=== PATIENT | female | born 1935 | race Caucasian/White ===

== ENCOUNTER 2016-06-23 18:56 | Emergency (ER) | payer MEDICARE, BC ==
[2016-06-23 19:52] LABS: Hematocrit 42 % (35-47); Hemoglobin 13.8 g/dl (12.0-16.0); Mean Corpuscular HGB Conc 33 g/dl (31-36); Mean Corpuscular Hemoglobin 30 pg (27-31); Mean Corpuscular Volume 90 fL (80-97); Mean Platelet Volume 8 um3 (7.4-10.4); Red Blood Count 4.61 10^6/ul (4.0-5.4); Red Cell Distribution Width 13 % (10.5-15); White Blood Count 9.8 10^3/ul (3.5-10.8)
--- NOTE | 2016-06-23 20:02 | ED ---
Anoop Harrington Karl, scribed for Edy Carias MD on 06/23/16 at 1920 . HPI Cardiac - HPI Summary HPI Summary: Pt is a 81 y/o female that presents to the ED c/o rapid HR that started at 17: 30. Pt stated she took Cardizem at 18:00 with no relief and denied CP, SOB, and dizziness. Pt reported that 06/09/16 was her last episode of SVT. Hx: A-fib. - History of Current Complaint Chief Complaint: EDDysrhythmPalp Stated Complaint: RAPID HEART Time Seen by Provider: 06/23/16 19:15 Hx Obtained From: Patient Onset/Duration: Started Hours Ago, Atraumatic, Still Present Time of Onset: 17:30 - Rapid HR Timing: Constant, Lasting Hours Initial Severity: Mild Current Severity: Mild Pain Intensity: 0 - CP Pain Scale Used: 0-10 Numeric Aggravating Factor(s): Nothing Alleviating Factor(s): Nothing Associated Signs and Symptoms: Positive: Other: - Rapid HR. Negative: Chest Pain, Dizziness, Shortness of Breath Related History: Similar Episode/Dx as: - SVT on 06/09/16 - Risk Factors Cardiac Risk Factors: Family History - Additional Pertinent History Primary Care Physician: [id number] - Allergy/Home Medications Allergies/Adverse Reactions: Allergies Allergy/AdvReac Type Severity Reaction Status Date / Time Epinephrine Allergy Severe Tachycardia Verified 06/09/16 14:50 Erythromycin Allergy Severe rectal Verified 06/09/16 14:50 bleeding, fistula Pentazocine Allergy Severe Hallucinati Verified 06/09/16 14:50 [From Talwin Compound] ons Statins Allergy CPK Verified 06/09/16 14:50 ELEVATED MUSCLE ACHES Morphine AdvReac Unknown Nausea And Verified 06/09/16 14:50 Vomiting PMH/Surg Hx/FS Hx/Imm Hx Endocrine/Hematology History: Reports: Hx Diabetes - TYPE II- ORAL MEDICATION FOR Comment Only: Hx Thyroid Disease - THYROID NODULE Cardiovascular History: Reports: Hx Angina, Hx Hypercholesterolemia, Hx Hypertension, Other Cardiovascular Problems/Disorders - A fib at times when electrolytes are low (pt states) Denies: Hx Pacemaker/ICD Respiratory History: Denies: Other Respiratory Problems/Disorders Musculoskeletal History: Reports: Hx Arthritis - OSTEOARTHRITIS, Hx Rheumatoid Arthritis, Hx Osteoporosis Sensory History: Reports: Hx Contacts or Glasses - GLASSES, Hx Glaucoma - BILATERAL, Hx Vision Problem Denies: Hx Cataracts, Hx Eye Injury, Hx Eye Prosthesis, Hx Legally Blind, Hx Macular Degeneration, Hx Deafness, Hx Hearing Aid, Hx Hearing Problem, Other Sensory Impairments Opthamlomology History: Reports: Hx Contacts or Glasses - GLASSES, Hx Glaucoma - BILATERAL, Hx Vision Problem Denies: Hx Cataracts, Hx Eye Injury, Hx Eye Prosthesis, Hx Legally Blind, Hx Macular Degeneration, Other Sensory Impairments Neurological History: Denies: Other Neuro Impairments/Disorders Psychiatric History: Reports: Hx Anxiety - FRO NOW - Cancer History Hx Chemotherapy: No Hx Radiation Therapy: No - Surgical History Surgery Procedure, Year, and Place: Tonsillectomy, appendectomy, 2 ectopic pregnancies,. hysterectomy, left hip REPLACEMENT 09/23/14, R ANKLE FX-- NO SURGERY. LEFT FEMUR REPAIRED-2014. CATARACT BILATERAL - [facility] Hx Anesthesia Reactions: Yes - NAUSEA Infectious Disease History: No Infectious Disease History: Denies: Traveled Outside the [place] in Last 30 Days - Family History Known Family History: Positive: Cardiac Disease, Diabetes - Social History Alcohol Use: Rare Substance Use Type: Reports: None Smoking Status (MU): Never Smoked Tobacco Review of Systems Constitutional: Negative Eyes: Negative ENT: Negative Positive: Other - SVT . Negative: Chest Pain Negative: Shortness Of Breath Gastrointestinal: Negative Genitourinary: Negative Musculoskeletal: Negative Skin: Negative Neurological: Other - no dizziness Psychological: Normal All Other Systems Reviewed And Are Negative: Yes Physical Exam Triage Information Reviewed: Yes Vital Signs On Initial Exam: Initial Vitals Temp Pulse Resp BP Pulse Ox 98.1 F 160 18 134/74 99 06/23/16 18:59 06/23/16 18:59 06/23/16 18:59 06/23/16 18:59 06/23/16 18:59 Vital Signs Reviewed: Yes Appearance: Positive: Well-Appearing, No Pain Distress Skin: Positive: Warm Head/Face: Positive: Normal Head/Face Inspection ENT: Positive: Hearing grossly normal Neck: Positive: Supple Respiratory/Lung Sounds: Positive: Clear to Auscultation, Breath Sounds Present Cardiovascular: Positive: Tachycardia Abdomen Description: Positive: Nontender, Soft Bowel Sounds: Positive: Present Musculoskeletal: Positive: Strength/ROM Intact Neurological: Positive: Sensory/Motor Intact, Alert, Oriented to Person Place, Time Psychiatric: Positive: Normal Diagnostics - Vital Signs Vital Signs Temp Pulse Resp BP Pulse Ox 06/23/16 18:59 98.1 F 160 18 134/74 99 - Laboratory Lab Results: Lab Results 06/23/16 06/23/16 Range/Units 19:37 19:37 WBC 9.8 (3.5-10.8) 10^3/ul RBC 4.61 (4.0-5.4) 10^6/ul Hgb 13.8 (12.0-16.0) g/dl Hct 42 (35-47) % MCV 90 (80-97) fL MCH 30 (27-31) pg MCHC 33 (31-36) g/dl RDW 13 (10.5-15) % Plt Count 316 (150-450) 10^3/ul MPV 8 (7.4-10.4) um3 Neut % (Auto) 61.1 (38-83) % Lymph % (Auto) 26.2 (25-47) % [place] % (Auto) 9.7 H (1-9) % Eos % (Auto) 1.8 (0-6) % Baso % (Auto) 1.2 (0-2) % Absolute Neuts (auto) 6.0 (1.5-7.7) 10^3/ul Absolute Lymphs (auto) 2.6 (1.0-4.8) 10^3/ul Absolute Monos (auto) 1.0 H (0-0.8) 10^3/ul Absolute Eos (auto) 0.2 (0-0.6) 10^3/ul Absolute Basos (auto) 0.1 (0-0.2) 10^3/ul Absolute Nucleated RBC 0.01 10^3/ul Nucleated RBC % 0.1 INR (Anticoag Therapy) 1.28 H (0.89-1.11) Result Diagrams: 06/23/16 19:37 06/23/16 19:37 Lab Statement: Any lab studies that have been ordered have been reviewed, and results considered in the medical decision making process. - EKG 19:02 EKG Interpretation: SVT at 153 bpm, No STEMI 20:42 EKG Interpretation: NSR at 90 bpm, No STEMI Re-Evaluation - Re-Evaluation First Eval Change: Improved - pt remains in nsr Disposition - Diagnoses Provider Diagnoses: Palpitations Discharge - Discharge Plan Condition: Stable Disposition: HOME Patient Education Materials: Palpitations (ED) Referrals: Emerita Russell MD [Primary Care Provider] - Additional Instructions: Please follow up with your director of undergraduate admissions. Return to the emergency department for changing or worsening symptoms. The documentation as recorded by the Anoop michelle Karl accurately reflects the service I personally performed and the decisions made by me, Edy Carias MD.
[2016-06-23 20:12] LABS: Albumin 4.1 g/dL (3.2-5.2); BUN/Creatinine Ratio 30.8 (8-20); EGFR African American 65.7 (>60); EGFR Non-African American 51.1 (>60); Globulin 3.4 g/dL (2-4); Magnesium 2.2 mg/dL (1.9-2.7); Potassium 3.9 mmol/L (3.5-5.0); Total Bilirubin 0.3 mg/dL (0.2-1.0); Total Protein 7.5 g/dL (6.4-8.9)
[2016-06-23 21:50] VITALS: BP 138/64
== END 2016-06-23 21:50 | disposition home or self-care (01) ==
LOC: ED 18:56
DX: R00.2 Palpitations (principal); I47.1 Supraventricular tachycardia
CPT/HCPCS: 36415; 80053; 83735; 85025; 85610; 93005; 99283

== ENCOUNTER 2016-08-16 23:19 | Observation (INO) | payer MEDICARE, BC ==
[2016-08-16] MEDS ORDERED: Diltiazem IV* 5 MG/ML 5 ML VIAL (for loading dose/IV Push) (25 MG) IV PUSH ONE (23:39)
[2016-08-17] MEDS ORDERED: NS 0.9% 1000 ML* 1,000 ML IV ONE (00:05)
[2016-08-17 00:27] LABS: Albumin 4.2 g/dL (3.2-5.2); BUN/Creatinine Ratio 33.6 (8-20); Calcium 10.8 mg/dL (8.6-10.3); EGFR African American 59.7 (>60); EGFR Non-African American 46.4 (>60); Globulin 3.2 g/dL (2-4); Magnesium 1.8 mg/dL (1.9-2.7); Potassium 4.5 mmol/L (3.5-5.0); Total Bilirubin 0.4 mg/dL (0.2-1.0); Total Protein 7.4 g/dL (6.4-8.9)
[2016-08-17 00:34] LABS: Hematocrit 40 % (35-47); Hemoglobin 12.9 g/dl (12.0-16.0); Mean Corpuscular HGB Conc 32 g/dl (31-36); Mean Corpuscular Hemoglobin 29 pg (27-31); Mean Corpuscular Volume 90 fL (80-97); Mean Platelet Volume 8 um3 (7.4-10.4); Red Blood Count 4.46 10^6/ul (4.0-5.4); Red Cell Distribution Width 13 % (10.5-15); White Blood Count 13.1 10^3/ul (3.5-10.8)
[2016-08-17 00:35] LABS: Troponin I 0.04 ng/mL (<0.04)
[2016-08-17] MEDS: NS 0.9% 500 ML BAG* 500 ML IV ONE ×2 (01:30→02:44)
[2016-08-17] MEDS ORDERED: Ondansetron INJ* 2 MG/ML VIAL IV ONE (02:50)
[2016-08-17] MEDS ORDERED: Ondansetron INJ* 2 MG/ML VIAL ONE (02:52)
--- NOTE | 2016-08-17 03:05 | ED ---
Manuelito Harrington Adam, scribed for Edy Carias MD on 08/17/16 at 0013 . Palpitations / Dysrhythmia - HPI Summary HPI Summary: Pt is a 81 year old female presenting with palpitations. After returning home from dinner, she states that she felt her HR become rapid ("racing") at 20:00. She did not eat anything at the dinner. Pt has a Hx of A Fib and states that she has these episodes "every once in awhile." The last episode was 06/09/16. Pt denies any SOB or CP. In addition to A Fib, the pt has a PMHx of DM, HTN, HLD , RA, and osteoporosis. - History of Current Complaint Chief Complaint: EDDysrhythmPalp Time Seen by Provider: 08/16/16 23:32 Hx Obtained From: Patient Onset/Duration: Sudden Onset, Lasting Hours, Still Present Timing: Constant Severity Initially: Moderate Severity Currently: Moderate Character: Fast Aggravating: Nothing Alleviating: Nothing Associated Signs & Symptoms: Negative - Allergy/Home Medications Allergies/Adverse Reactions: Allergies Allergy/AdvReac Type Severity Reaction Status Date / Time Epinephrine Allergy Severe Tachycardia Verified 08/17/16 04:28 Erythromycin Allergy Severe rectal Verified 08/17/16 04:28 bleeding, fistula Pentazocine Allergy Severe Hallucinati Verified 08/17/16 04:28 [From Talwin Compound] ons Statins Allergy CPK Verified 08/17/16 04:28 ELEVATED MUSCLE ACHES Morphine AdvReac Unknown Nausea And Verified 08/17/16 04:28 Vomiting Home Medications: Home Medications Sertraline HCl [Zoloft] 100 mg PO QPM 08/17/16 [History Confirmed 08/17/16] PMH/Surg Hx/FS Hx/Imm Hx Endocrine/Hematology History: Reports: Hx Diabetes - TYPE II- ORAL MEDICATION FOR Comment Only: Hx Thyroid Disease - THYROID NODULE Cardiovascular History: Reports: Hx Angina, Hx Hypercholesterolemia, Hx Hypertension, Other Cardiovascular Problems/Disorders - A fib at times when electrolytes are low (pt states) Denies: Hx Pacemaker/ICD Respiratory History: Denies: Other Respiratory Problems/Disorders Musculoskeletal History: Reports: Hx Arthritis - OSTEOARTHRITIS, Hx Rheumatoid Arthritis, Hx Osteoporosis Sensory History: Reports: Hx Contacts or Glasses - GLASSES, Hx Glaucoma - BILATERAL, Hx Vision Problem Denies: Hx Cataracts, Hx Eye Injury, Hx Eye Prosthesis, Hx Legally Blind, Hx Macular Degeneration, Hx Deafness, Hx Hearing Aid, Hx Hearing Problem, Other Sensory Impairments Opthamlomology History: Reports: Hx Contacts or Glasses - GLASSES, Hx Glaucoma - BILATERAL, Hx Vision Problem Denies: Hx Cataracts, Hx Eye Injury, Hx Eye Prosthesis, Hx Legally Blind, Hx Macular Degeneration, Other Sensory Impairments Neurological History: Denies: Other Neuro Impairments/Disorders Psychiatric History: Reports: Hx Anxiety - FRO NOW - Cancer History Hx Chemotherapy: No Hx Radiation Therapy: No - Surgical History Surgery Procedure, Year, and Place: Tonsillectomy, appendectomy, 2 ectopic pregnancies,. hysterectomy, left hip REPLACEMENT 09/23/14, R ANKLE FX-- NO SURGERY. LEFT FEMUR REPAIRED-2014. CATARACT BILATERAL - [facility] Hx Anesthesia Reactions: Yes - NAUSEA Infectious Disease History: No Infectious Disease History: Denies: Traveled Outside the [place] in Last 30 Days - Family History Known Family History: Positive: Cardiac Disease, Diabetes - Social History Occupation: Retired Lives: Alone Alcohol Use: Rare Hx Substance Use: No Substance Use Type: Reports: None Hx Tobacco Use: No Smoking Status (MU): Never Smoked Tobacco Review of Systems Positive: Palpitations. Negative: Chest Pain Negative: Shortness Of Breath All Other Systems Reviewed And Are Negative: Yes Physical Exam Triage Information Reviewed: Yes Vital Signs On Initial Exam: Initial Vitals Temp Pulse Resp BP Pulse Ox 98.2 F 149 18 123/65 97 08/16/16 23:29 08/16/16 23:29 08/16/16 23:29 08/16/16 23:29 08/16/16 23:29 Vital Signs Reviewed: Yes Appearance: Positive: Well-Appearing, No Pain Distress Skin: Positive: Warm Eyes: Positive: JUNE ENT: Positive: Hearing grossly normal Neck: Positive: Supple Respiratory/Lung Sounds: Positive: Clear to Auscultation, Breath Sounds Present Cardiovascular: Positive: IRR, Tachycardia Abdomen Description: Positive: Nontender, Soft Bowel Sounds: Positive: Present Musculoskeletal: Positive: Strength/ROM Intact Neurological: Positive: Alert, Oriented to Person Place, Time Psychiatric: Positive: Affect/Mood Appropriate Diagnostics - Vital Signs Vital Signs Temp Pulse Resp BP Pulse Ox 08/16/16 23:29 98.2 F 149 18 123/65 97 - Laboratory Lab Results: Lab Results 08/16/16 08/16/16 08/16/16 Range/Units 23:55 23:55 23:55 WBC 13.1 H (3.5-10.8) 10^3/ul RBC 4.46 (4.0-5.4) 10^6/ul Hgb 12.9 (12.0-16.0) g/dl Hct 40 (35-47) % MCV 90 (80-97) fL MCH 29 (27-31) pg MCHC 32 (31-36) g/dl RDW 13 (10.5-15) % Plt Count 325 (150-450) 10^3/ul MPV 8 (7.4-10.4) um3 Neut % (Auto) 66.7 (38-83) % Lymph % (Auto) 21.6 L (25-47) % [place] % (Auto) 8.5 (1-9) % Eos % (Auto) 2.6 (0-6) % Baso % (Auto) 0.6 (0-2) % Absolute Neuts (auto) 8.7 H (1.5-7.7) 10^3/ul Absolute Lymphs (auto) 2.8 (1.0-4.8) 10^3/ul Absolute Monos (auto) 1.1 H (0-0.8) 10^3/ul Absolute Eos (auto) 0.3 (0-0.6) 10^3/ul Absolute Basos (auto) 0.1 (0-0.2) 10^3/ul Absolute Nucleated RBC 0 10^3/ul Nucleated RBC % 0 INR (Anticoag Therapy) 1.23 H (0.89-1.11) Sodium 135 (133-145) mmol/L Potassium 4.5 (3.5-5.0) mmol/L Chloride 102 (101-111) mmol/L Carbon Dioxide 24 (22-32) mmol/L Anion Gap 9 (2-11) mmol/L BUN 38 H (6-24) mg/dL Creatinine 1.13 H (0.51-0.95) mg/dL Est GFR ( Amer) 59.7 (>60) Est GFR (Non-Af Amer) 46.4 (>60) BUN/Creatinine Ratio 33.6 H (8-20) Glucose 145 H (70-100) mg/dL Lactic Acid (0.5-2.0) mmol/L Calcium 10.8 H (8.6-10.3) mg/dL Magnesium 1.8 L (1.9-2.7) mg/dL Total Bilirubin 0.40 (0.2-1.0) mg/dL AST 13 (13-39) U/L ALT 14 (7-52) U/L Alkaline Phosphatase 93 (34-104) U/L Troponin I 0.04 H* (<0.04) ng/mL Total Protein 7.4 (6.4-8.9) g/dL Albumin 4.2 (3.2-5.2) g/dL Globulin 3.2 (2-4) g/dL Albumin/Globulin Ratio 1.3 (1-3) 08/16/16 Range/Units 23:55 WBC (3.5-10.8) 10^3/ul RBC (4.0-5.4) 10^6/ul Hgb (12.0-16.0) g/dl Hct (35-47) % MCV (80-97) fL MCH (27-31) pg MCHC (31-36) g/dl RDW (10.5-15) % Plt Count (150-450) 10^3/ul MPV (7.4-10.4) um3 Neut % (Auto) (38-83) % Lymph % (Auto) (25-47) % [place] % (Auto) (1-9) % Eos % (Auto) (0-6) % Baso % (Auto) (0-2) % Absolute Neuts (auto) (1.5-7.7) 10^3/ul Absolute Lymphs (auto) (1.0-4.8) 10^3/ul Absolute Monos (auto) (0-0.8) 10^3/ul Absolute Eos (auto) (0-0.6) 10^3/ul Absolute Basos (auto) (0-0.2) 10^3/ul Absolute Nucleated RBC 10^3/ul Nucleated RBC % INR (Anticoag Therapy) (0.89-1.11) Sodium (133-145) mmol/L Potassium (3.5-5.0) mmol/L Chloride (101-111) mmol/L Carbon Dioxide (22-32) mmol/L Anion Gap (2-11) mmol/L BUN (6-24) mg/dL Creatinine (0.51-0.95) mg/dL Est GFR ( Amer) (>60) Est GFR (Non-Af Amer) (>60) BUN/Creatinine Ratio (8-20) Glucose (70-100) mg/dL Lactic Acid 2.3 H* (0.5-2.0) mmol/L Calcium (8.6-10.3) mg/dL Magnesium (1.9-2.7) mg/dL Total Bilirubin (0.2-1.0) mg/dL AST (13-39) U/L ALT (7-52) U/L Alkaline Phosphatase (34-104) U/L Troponin I (<0.04) ng/mL Total Protein (6.4-8.9) g/dL Albumin (3.2-5.2) g/dL Globulin (2-4) g/dL Albumin/Globulin Ratio (1-3) Result Diagrams: 08/16/16 23:55 08/16/16 23:55 Lab Statement: Any lab studies that have been ordered have been reviewed, and results considered in the medical decision making process. - EKG 23:26 Cardiac Rate: Tachycardia - 141 BPM EKG Rhythm: Atrial Fibrillation - With RVR - Additional Comments Diagnostic Additional Comments: Lactic Acid - 2.3 Troponin I - 0.04 (23:55), 0.05 (02:30) Re-Evaluation - Re-Evaluation First Eval Change: Improved - pt converted to nsr from afib, however has trending upward troponins, pain free, will admit Course/Dx - Course Course Of Treatment: 03:19 - Patient will be admitted. - Diagnoses Provider Diagnoses: ACS (acute coronary syndrome) - Physician Notifications Instructed by Provider To: Admit As Inpatient - Critical Care Time Critical Care Time: 30-74 min Discharge - Discharge Plan Condition: Fair Disposition: ADMITTED TO [facility] documentation as recorded by the Manuelito michelle Adam accurately reflects the service I personally performed and the decisions made by me, Edy Carias MD.
[2016-08-17] MEDS ORDERED: Ondansetron INJ* 2 MG/ML VIAL IV PRN (03:46)
[2016-08-17] MEDS ORDERED: Al Hydrox/Mg Hydrox/Simet LIQ* 30 ML UDC PO PRN (03:46)
[2016-08-17] MEDS ORDERED: Dextrose 50% Syringe 50 ML* 25 GM/50 ML SYRINGE IV PUSH PRN (03:49)
[2016-08-17] MEDS: Acetaminophen TAB* 325 MG PO PRN ×3 (04:15→14:45)
[2016-08-17] MEDS: Magnesium Oxide TAB* 400 MG PO SCH ×2 (05:09→14:02)
--- NOTE | 2016-08-17 07:19 | HP ---
HISTORY AND PHYSICAL: DATE OF ADMISSION: 08/17/2016. TIME OF EVALUATION: 0400. PRIMARY CARE PHYSICIAN: Emerita Russell MD CHIEF COMPLAINT: Palpitations. HISTORY OF PRESENT ILLNESS: This is a 81-year-old female with past medical history of paroxysmal atrial fibrillation, hypertension and diabetes who presents to the emergency room with palpitations. The patient states that she knows when she was in rapid atrial fibrillation, she had an admission back in May for rapid atrial fibrillation. At that time, they changed her diltiazem dose. She took an extra 90 mg of diltiazem and still continued to have a rapid pulse. She called her primary who recommended coming in to the emergency room. The patient has been nauseous. However, she has been having upper respiratory symptoms with sinusitis and postnasal drip. She had a coughing episode early today with post-tussive emesis. She has persistent cough. No fever, no shortness of breath. No chest pain, just palpitations. No abdominal pain, no diarrhea, no constipation. No changes in her weight. No lower extremity swelling. No diaphoresis. She states that her last stress test , she believes, was about a year ago with Dr. Wood. She denies any dysuria. She states she recently had a sleep study done with Dr. Prajapati and was told it was okay. She denies any caffeine intake. She did go out this evening, had a small glass of wine, which she normally does not do on a regular basis. Otherwise, remaining review of systems were negative. In the emergency room, the patient had labs done. A repeat troponin went up slightly. The patient was able to convert with the diltiazem bolus and she was referred to hospitalist service for further evaluation. PAST MEDICAL HISTORY: 1. Paroxysmal atrial fibrillation with a recent admission in May 2016 for rapid atrial fibrillation. 2. Hypertension. 3. Diabetes. 4. Osteoarthritis. 5. Glaucoma. 6. Hyperlipidemia. 7. Mild mitral regurg. PAST SURGICAL HISTORY: 1. Status post appendectomy. 2. Status post hysterectomy. 3. Status post bilateral cataract extraction. 4. Status post carpal tunnel release on the right. MEDICATIONS: 1. Diltiazem 240 mg p.o. daily. 2. Xarelto 50 mg p.o. daily. 3. Vitamin D 2000 units daily. 4. Cosopt one drop each eye b.i.d. 5. Lisinopril 5 mg p.o. daily. 6. Magnesium 500 mg p.o. b.i.d. 7. Metformin 500 mg p.o. b.i.d. 8. Potassium chloride 20 mEq daily. 9. Vitamin B12 1000 mcg daily. ALLERGIES: 1. EPINEPHRINE. 2. ERYTHROMYCIN. 3. PENTAZOCINE. 4. STATINS. 5. MORPHINE. FAMILY HISTORY: Mother from complications of gallbladder stones. Father in his 80's from cardiac complications. SOCIAL HISTORY: The patient lives alone. She is . Her daughter, Catalina Stephen, is her health care proxy, [phone]. 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 No tobacco use. As mentioned, rare occasional alcohol use. CODE STATUS: She is a DNR/DNI. She has a MOLST form on file. REVIEW OF SYSTEMS: As mentioned in the HPI. PHYSICAL EXAMINATION VITAL SIGNS: Temp 98.2, pulse rate 76, respiratory rate 17, oxygen saturation 93% on room air, blood pressure 129/145. GENERAL: No acute distress, resting comfortably. HEENT: Neck supple, no lymphadenopathy. Oropharynx, positive postnasal drip noted. Mild erythema in the posterior oropharynx. Pupils are equal and reactive , anicteric. Head, normocephalic. CARDIAC: Regular rate and rhythm. Soft systolic murmur heard throughout. RESPIRATORY: Diminished breath sounds. Occasional rhonchi bilaterally. ABDOMEN: Soft, nontender, nondistended. EXTREMITIES: No clubbing, cyanosis, or edema. +2 DP's. NEUROLOGIC: Alert and oriented x3. No focal neurologic deficits. LABORATORY DATA: White count 13.1, hemoglobin 12.9, hematocrit 40, platelets 325. INR 1.23, sodium 135, potassium 4.5, chloride 102, bicarb 24, BUN 38, creatinine 1.13, glucose 145, lactate 2.3, magnesium 1.8. Troponin 0.04, bumped to 0.05. RADIOGRAPHIC DATA: Initial EKG did show rapid atrial fibrillation with a rate of [address] depression. ASSESSMENT AND PLAN: This is a 81-year-old female with past medical history of paroxysmal atrial fibrillation on anticoagulation who presents to the emergency room with palpitations and found to have rapid atrial fibrillation, has converted back into sinus with a diltiazem bolus. 1. Rapid atrial fibrillation. Assessment: The patient has converted on her own. The concern was that she had a mild elevation in her troponin. She is currently asymptomatic. She had a stress test about a year ago that was negative. I suspect this rapid atrial fibrillation is secondary to her viral illness with her URI and sinus infection. She also did have a glass of wine today. Plan: I will keep her NPO in case the primary wants to do a stress test. Continue her medications as prescribed. I will also obtain a chest x-ray and another EKG, as it appears that she has converted back into normal sinus. I'll continue to trend her troponin, obtain a lipid panel, and add hemoglobin A1c. 2. Chronic medical problems. Paroxysmal atrial fibrillation as mentioned. We will continue on her diltiazem and Xarelto. 3. Hypertension. The patient's blood pressures are within normal range. Due to her elevated creatinine, I am going to hold her lisinopril for now. 4. Glaucoma. Continue her Cosopt. 5. Elevated creatinine. The patient appeared to have a slight bump in her creatinine back in June as well. Check her urine and FENa, and hold her lisinopril as mentioned. 6. FEN. We will keep her NPO for now in case a nuclear stress test is indicated by her doctor, Dr. Russell. 7. For her diabetes, we will hold her oral agents and start her on Lispro sliding scale. 8. DVT prophylaxis. She scores high risk. She is on Xarelto. 9. Code status, DNR/DNI. PATIENT TIME: Greater than 60 minutes were spent doing the history and physical ; more than half the time was spent in direct patient contact. CC: Emerita Russell MD* [id number]/[facility] #: [id number] DEMI
[2016-08-17 07:36] LABS: HDL Cholesterol 53.9 mg/dL
[2016-08-17 07:47] LABS: Troponin I 0.05 ng/mL (<0.04)
--- NOTE | 2016-08-17 08:15 | RAD ---
INDICATION: Cough. COMPARISON: Comparison is made with prior chest x-ray study from June 09, 2016. TECHNIQUE: Dual-energy PA and lateral views of the chest were obtained. FINDINGS: The heart is within normal limits in size. Mediastinal and hilar contours appear within normal limits. There is mitral annular calcification present. There is a focal infiltrate present in the right middle lobe. The lungs are hyperinflated consistent with chronic obstructive pulmonary disease. No pleural effusion is seen. IMPRESSION: 1. RIGHT MIDDLE LOBE INFILTRATE. 2. COPD.
[2016-08-17] MEDS ORDERED: Dorzolamide/Timolol OPTH (NF) 10 ML BOT BOTH EYES SCH (09:00)
[2016-08-17] MEDS ORDERED: Rivaroxaban TAB(*) 15 MG PO SCH (09:00)
[2016-08-17] MEDS ORDERED: Diltiazem CD CAP* 240 MG PO SCH (09:00)
[2016-08-17 09:31] VITALS: BP 101/30
[2016-08-17] MEDS: Insulin LISPRO* 1 UNITS UNIT SUBCUT SCH ×3 (09:55→16:50)
[2016-08-17 10:54] LABS: Albumin 3.6 g/dL (3.2-5.2); BUN/Creatinine Ratio 37.5 (8-20); Calcium 9.8 mg/dL (8.6-10.3); EGFR African American 72.1 (>60); EGFR Non-African American 56.1 (>60); Potassium 4.8 mmol/L (3.5-5.0); Total Protein 6.4 g/dL (6.4-8.9)
[2016-08-17 10:55] LABS: Globulin 2.8 g/dL (2-4); Total Bilirubin 0.3 mg/dL (0.2-1.0)
[2016-08-17] MEDS ORDERED: Dronedarone TAB* 400 MG PO SCH (11:00)
[2016-08-17] MEDS ORDERED: Benzocaine/Menthol LOZ* 1 LOZENGE MT PRN (11:28)
[2016-08-17] MEDS ORDERED: Magnesium Sulfate 2 GM IV IVPB ONE (12:00)
[2016-08-17] MEDS ORDERED: Regadenoson* 0.4 MG/5 ML SYRINGE ONE (12:15)
[2016-08-17] MEDS ORDERED: Aminophylline IV* 25 MG/ML 10 ML VIAL ONE (12:15)
--- NOTE | 2016-08-17 14:04 | RAD ---
Edited for charges. HISTORY: Paroxysmal atrial fibrillation, hypertension, hyperlipidemia COMPARISONS: July 09, 2014 TECHNIQUE: A 1 day stress/rest myocardial perfusion study was performed, with pharmacologic stress. The stress portion was monitored by Dr. Storey. Gated SPECT imaging was performed, with CT-based attenuation correction DOSE: Stress: Technetium 99m tetrofosmin, 25.18 millicuries, injected at 12:37 PM on August 17, 2016 Rest: Technetium 99m tetrofosmin, 10.22 millicuries, injected at 11:10 AM on August 17, 2016 Pharmacologic agent: Lexiscan FINDINGS: CARDIAC MONITORING: Nondiagnostic EKG study secondary to baseline abnormality EF: 79 % TID: 1.11 MOTION: Normal motion, with normal wall thickening. PERFUSION: There are no fixed or reversible perfusion defects. OTHER: None IMPRESSION: NO FIXED OR REVERSIBLE PERFUSION DEFECT ASSESSMENT: LOW RISK. Based on imaging criteria from ACC/AHA 2002. Guideline Update for the Management of Patient's with Chronic Stable Angina, table 23. Noninvasive Risk Stratification. MTDD
[2016-08-17 14:18] LABS: C Reactive Protein 14.5 mg/L (< 5.00)
[2016-08-17] MEDS ORDERED: Amoxicillin/Clavulanate TAB* 875 MG PO SCH (21:00)
--- NOTE | 2016-08-19 01:26 | DS ---
DISCHARGE SUMMARY: DATE OF ADMISSION: 08/16/16 DATE OF DISCHARGE: 08/17/16 DISCHARGE DIAGNOSES: 1. Paroxysmal atrial fibrillation. 2. Respiratory infection with sinus tenderness and right middle lobe infiltrate on chest x-ray, probable sinusitis and pneumonia. 3. Type 2 diabetes mellitus. 4. History of hypertension. 5. Left ventricular hypertrophy with history of diastolic dysfunction. 6. Status post hip replacement and fracture. 7. Hyperlipidemia with intolerance to statin. 8. Mitral annular calcification with mild mitral regurgitation. 9. Hypomagnesemia. HISTORY: Marilee Novoa is a 81-year-old woman admitted with atrial fibrillation with uncontrolled ventricular response in the setting of known paroxysmal atrial fibrillation. Please see the dictated admission note for details of the present illness, past medical history, family history, social and personal history, review of systems, and physical examination. LABORATORY DATA: CBC on admission - WBC 13.1, H and H 12.9/40, MCV 90, PLT 325K. Differential essentially within normal limits with a slightly high 8.7% absolute neutrophil count. INR 1.23. Chemistries: Sodium 135, potassium 4.5, chloride 102, CO2 24, BUN/creatinine 38/1.13, glucose 145, calcium 10.8, magnesium 1.8. Rest of the comprehensive metabolic panel was within normal limits. Initial lactic acid was 2.3. Hemoglobin A1c was 6.4%. Troponins were 0.04, 0.05, 0.05. BNP was 139. CRP was 14.50. Lipids were cholesterol 206, HDL 53.9, LDL 131, triglycerides 107. Procalcitonin was less than 0.1. Additional EKG showed atrial fibrillation with uncontrolled ventricular response , otherwise no significant change from previous EKG of 06/23/16. Repeat EKG on 08/17/16 showed sinus rhythm. Normal EKG. Chest x- ray showed a right middle lobe infiltrate. Nuclear chemical stress test showed no fixed or reversible perfusion defect. The Lexiscan study was nondiagnostic by EKG. HOSPITAL COURSE: The patient was admitted after getting a bolus of Cardizem in the emergency room. She subsequently converted to normal sinus rhythm. She was monitored on telemetry and had no further atrial fibrillation. Her dose of diltiazem was maintained at 240 mg once a day. She was also continued on Xarelto 15 mg once a day. She complained of a respiratory symptoms for over 2 to 3 weeks. She had had a previous course of trimethoprim sulfa. She continued to cough and for this reason was started on Augmentin. Chest x-ray did show an infiltrate, although CRP was only mildly elevated and procalcitonin was normal. After she converted, she felt tired but fine. She underwent a workup for ischemia which was negative. I discussed her case with Dr. Wood who is her outpatient stationary equipment mechanic. He felt it was reasonable to start her on Multaq to prevent further episodes of atrial fibrillation as she has had several in the recent past (02/21/16, 06/09/16, 06/23/16 and this one). At the time of discharge, she is being discharged on Multaq 400 mg twice a day, magnesium 500 mg 3 times a day, omega-3 two a day, potassium chloride 20 mEq one a day, B12 1000 mcg once a day, metformin 500 mg 2 a day, cinnamon 2 a day, lisinopril 5 mg 1 a day, vitamin D 2000 units 1 a day, Xarelto 15 mg 1 a day, Augmentin 875 mg 1 twice a day and diltiazem CD 240 mg 1 a day. The Multaq 400 mg twice a day and Augnmentin were called into [facility]. CC: Dr. Tony Wood * [id number]/[facility] #: [id number] MTDD
== END 2016-08-17 17:55 | disposition home or self-care (01) ==
LOC: ED 23:19 → MEDTELE 08-17 04:02
PROVIDERS: ADMIT Pediatrics; ATTEND Internal Medicine Geriatric Medicine
DX: I48.0 Paroxysmal atrial fibrillation (principal); J98.8 Other specified respiratory disorders; R51 Headache; E11.9 Type 2 diabetes mellitus without complications; I10 Essential (primary) hypertension; I51.7 Cardiomegaly; I34.0 Nonrheumatic mitral (valve) insufficiency; E78.5 Hyperlipidemia, unspecified; E83.42 Hypomagnesemia; R94.4 Abnormal results of kidney function studies; H40.9 Unspecified glaucoma; I20.9 Angina pectoris, unspecified; Z79.01 Long term (current) use of anticoagulants; Z79.84 Long term (current) use of oral hypoglycemic drugs; Z88.1 Allergy status to other antibiotic agents; Z88.5 Allergy status to narcotic agent; Z88.8 Allergy status to other drugs, medicaments and biological substances
CPT/HCPCS: 36415; 71020; 78452; 80053; 80061; 83036; 83605; 83735; 83880; 84145; 84484; 85025; 85610; 86140; 93005; 93017; 96365; 96375; 99291; A9270-GY; A9502; G0378; J0280; J2405; J2785